=== PATIENT | male | born 1955 | race Caucasian/White ===

== ENCOUNTER 2025-04-10 15:28 | Emergency (ER) | payer OTHER, MEDICAID ==
[~2025-04-10] VITALS: Ht 172.7 cm; Wt 87.0 kg
[2025-04-10 15:31] VITALS: O2SAT 97
[2025-04-10 16:07] LABS: BASOPHILS % 0.5 % (0.0-2.0); EOSINOPHILS % 0.5 % (0.0-5.0); HEMATOCRIT. 38.9 % (42.0-52.0); HEMOGLOBIN. 12.7 g/dL (14.0-18.0); LYMPHOCYTES % 11.5 % (20.0-50.0); MEAN PLATELET VOLUME 10.1 fl (7.4-10.4); MONOCYTES % 5.3 % (2.0-8.0); NEUTROPHILS % 82.2 % (40.0-76.0); PLATELET 127 x1000/uL (130-400); RED BLOOD CELL COUNT 4.06 mill/uL (4.7-6.1); RED CELL DISTRIBUTION WIDTH 16.1 % (11.6-14.6)
[2025-04-10] MEDS: MECLIZINE 25MG TABLET PO ONE ×2 (16:14→18:57)
[2025-04-10 16:21] LABS: CREATININE 3.7 mg/dL (0.6-1.3); PROTEIN TOTAL 7.8 g/dL (6.0-8.3)
[2025-04-10 16:22] LABS: ETHANOL BLOOD < 10 mg/dL (<10); UREA NITROGEN BLOOD 22 mg/dL (9-23)
[2025-04-10 16:23] LABS: ASPARTATE AMINOTRANSFERASE 18 IU/L (<34)
[2025-04-10 16:24] LABS: BILIRUBIN DIRECT 0.2 mg/dL (<=3.0); BILIRUBIN TOTAL 0.7 mg/dL (0.1-1.0); PHOSPHORUS 3.4 mg/dL (2.5-4.9)
[2025-04-10 16:27] LABS: TROPONIN I HIGH SENSITIVITY 6 ng/L (3.0-53)
[2025-04-10] MEDS: ASPIRIN 325MG EC TABLET PO ONE (18:17)
[2025-04-10 20:12] LABS: CLARITY URINE CLEAR (CLEAR); GLUCOSE URINE 1+ (NEGATIVE); KETONES URINE NEGATIVE (NEGATIVE); LEUKOCYTE ESTERASE URINE NEGATIVE (NEGATIVE); NITRITE URINE NEGATIVE (NEGATIVE); OCCULT BLOOD URINE NEGATIVE (NEGATIVE); PH URINE >=9.0 (4.5-8.0); PROTEIN URINE 2+ (NEGATIVE); SPECIFIC GRAVITY URINE 1.012 (1.005-1.030); UROBILINOGEN URINE 0.2 E.U./dL (0.2-1.0)
[2025-04-10 20:47] VITALS: BP 138/82; PULSE 81; RESP 14; TEMP 36.6; O2SAT 98
[2025-04-10 21:24] LABS: COLOR URINE STRAW (YELLOW)
[2025-04-10 21:27] LABS: BACTERIA URINE NONE SEEN; MUCUS URINE TRACE /lpf (NONE/TRACE); RBC URINE NONE SEEN /hpf (0-2); SQUAMOUS EPITHELIAL CELL URINE RARE /lpf (RARE/1+); WBC URINE NONE SEEN /hpf (0-2)
[2025-04-10] MEDS ORDERED: IOHEXOL-350 100 ML BOTTLE ONE (23:22)
== END 2025-04-10 21:13 | disposition short-term general hospital (02) ==
LOC: ER 15:28 → EDBEDREQTM 19:02 → EDBEDREQ 19:02 → ER 21:13 → CMPBEDREQ 04-11 08:30
DX: R42 Dizziness and giddiness (principal); R53.1 Weakness; H91.92 Unspecified hearing loss, left ear; E11.22 Type 2 diabetes mellitus with diabetic chronic kidney disease; E78.00 Pure hypercholesterolemia, unspecified; G31.9 Degenerative disease of nervous system, unspecified; I13.11 Hypertensive heart and chronic kidney disease without heart failure, with stage 5 chronic kidney disease, or end stage renal disease; N18.6 End stage renal disease; I65.23 Occlusion and stenosis of bilateral carotid arteries; Z99.2 Dependence on renal dialysis; Z20.822 Contact with and (suspected) exposure to COVID-19
CPT/HCPCS: 80076; 80048; 81003; 80320; 82140; 83735; 84100; 85025; 84484; 36415; 71045; 70496; 70498; 70450; 99291; 87426; Q9967; J8597; G0480